=== PATIENT | male | born 1940 | race Caucasian/White ===

== ENCOUNTER 2024-12-29 08:50 | Outpatient (REF) | payer MEDICARE, SELFPAY ==
--- OUTSIDE RECORDS SUMMARY | 2024-12-29 09:17 | XMS_ITS | Clinical Summary ---
Author Organization [facility] Address [address] [place] [address] Care Team Providers Care Automotive Fleet Supervisor Name Role Phone Nahun Santamaria MD Primary Care Provider [phone] Allergies Active Allergy Reactions Criticality Noted Date Comments Gadolinium 06/18/2019 Iodinated Contrast Media Other (See Comments) 0 12/31/2020 Lisinopril 10/05/2017 angioedema Medications Medication Sig Dispensed Refills Start Date End Date Status metoprolol succinate (TOPROL-XL) 24 hr tablet 25 mg metoprolol succinate ER 25 mg tablet,extended release 24 hr 0 03/31/2019 Active Multiple Vitamin (MULTI-VITAMIN DAILY PO) 1 TAB DAILY 0 Active bicalutamide (CASODEX) 50 MG tablet TAKE ONE TABLET BY MOUTH EVERY DAY 0 02/12/2020 Active diphenoxylate-atro pine (LOMOTIL) 2.5-0.025 MG per tablet Take 2 tablets by mouth 3 (three) times a day. 0 02/21/2020 Active potassium chloride ER (K-DUR,KLOR-CON) tablet 20 mEq TAKE ONE TABLET BY MOUTH EVERY DAY 0 02/18/2020 Active tamsulosin (FLOMAX) 0.4 MG CAPS Take 0.4 mg by mouth. 0 12/23/2019 Active metoprolol succinate (TOPROL-XL) 24 hr tablet 25 mg TAKE ONE TABLET BY MOUTH EVERY DAY 0 04/14/2020 Active Adult Aspirin Regimen 81 MG EC tablet TAKE ONE TABLET BY MOUTH EVERY DAY 0 12/03/2020 Active atorvastatin (LIPITOR) tablet 80 mg Take 80 mg by mouth every night at bedtime. 0 12/03/2020 Active oxyCODONE (ROXICODONE) 5 MG immediate release tablet TAKE 1/2 TABLET BY MOUTH EVERY 6 HOURS NEEDED FOR SEVERE PAIN (MAX OF 4 TABS/DAY) - TAKE MIRALAX TO AVOID CONSTIPATION 0 12/03/2020 Active enoxaparin (LOVENOX) 40 MG/0.4ML SOLN Inject 40 mg under the skin every 12 (twelve) hours. 0 Active Morphine Sulfate ER (MS Contin) 15 MG TBCR Take 1 tablet (15 mg total) by mouth every 12 (twelve) hours. Do not crush, do not chew, do not cut medication. 6 tablet 0 12/07/2020 Active sulfamethoxazole-t rimethoprim (Bactrim DS) 800-160 MG per tablet Take 1 tablet (160 mg of trimethoprim total) by mouth 2 (two) times a day. 20 tablet 0 12/07/2020 Active warfarin (COUMADIN) 1 MG tablet Take 4 tabs daily or as directed by physician 75 tablet 0 12/16/2020 Active aspirin 81 MG EC tablet Take 81 mg by mouth. 0 12/03/2020 Acti ve atorvastatin (LIPITOR) tablet 80 mg Take 80 mg by mouth. 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 Family History Medical History Relation Name Comments Hypertension Brother Heart disease Father Hypertension Father Hypertension Mother Cancer Sister Diabetes Sister Heart disease Sister Hypertension Sister Relation Name Status Comments Brother Father Mother Sister Social History Tobacco Use Types Packs/Day Years Used Date Smoking Tobacco: Former Cigarettes 1.5 1 957 - 2006 Smokeless Tobacco: Never Alcohol Use Standard Drinks/Week Comments No 0 (1 standard drink = 0.6 oz pur e alcohol) Sex and Gender Information Value Date Recorded Sex Assigned at Not on file Gender Identity Not on file Sexual Orientation Not on file Job Start Date Occupation Industry Not on file Not on file Not on file Last Filed Vital Signs Vital Sign Reading Time Taken Comments Blood Pressure - - Pulse - - Temperature - - Respiratory Rate - - Oxygen Saturation - - Inhaled Oxygen Concentration - - Weight 93 kg (205 lb) 01/25/2021 10:38 AM EDT Height 185.4 cm (6' 1 ) 01/25/2021 10:38 AM EDT Body Mass Index 27.05 01/25/2021 10:38 AM EDT Plan of Treatment Health Maintenance Due Date Last Done Comments COVID-19 Vaccine (#1) 1942 Depression Screening 1954 Preventative Health Evaluation 1960 DTap / Tdap / Td (1 - Tdap) 1961 Shingrix-Zoster Vaccine (1 of 2) 1992 Fall Risk Assessment 2007 RSV Adult > 60+ Yrs or (1 - 1-dose 75+ series) 2017 Influenza Vaccine (Season Ended) 2025 08/06/2018, 04/28/2016, 05/17/2015, Additional history exists Pneumococcal Vaccine Completed 04/28/2016, 09/02/19 08 Hepatitis B Vaccines Aged Out No long er eligible based on patient's age to complete this topic RSV Ped < 20 months Aged Out No longe r eligible based on patient's age to complete this topic Care Teams Automotive Fleet Supervisor Relationship Specialty Start Date End Date Nahun Santamaria MD PCP - General Planning Engineer 06/03/19
== END 2024-12-29 08:51 | disposition home or self-care (01) ==
LOC: HO.SH 08:50
PROVIDERS: Visit Provider Physician Assistant Medical
DX: Z01.118 Encounter for examination of ears and hearing with other abnormal findings (principal); H90.3 Sensorineural hearing loss, bilateral
CPT/HCPCS: 92557; 92567